=== PATIENT | female | born 2000 | race Caucasian/White ===

== ENCOUNTER 2021-01-16 14:44 | Outpatient (CLI) | payer OTHER, MEDICAID, SELFPAY ==
--- NOTE | 2021-01-16 15:10 | DI.RAD_ITS ---
EXAM: XR ELBOW LT COMPLETE CLINICAL HISTORY: LT ELBOW PAIN M25.522. TECHNIQUE: 2D digital imaging was performed. COMPARISON: No exams were available for comparison FINDINGS: There is no evidence of fracture or joint effusion. No swelling of the olecranon bursa. Radial head appears unremarkable as does the capitellum. IMPRESSION: No fracture evident. No joint effusion. DATA REPOSITORY: RADIATION DOSE DELIVERED:
== END 2021-01-16 15:04 ==
PROVIDERS: Visit Provider Physician Assistant Medical
DX: M25.522 Pain in left elbow (principal)
CPT/HCPCS: 73080